=== PATIENT | female | born 1960 | race Asian ===

== ENCOUNTER 2020-06-01 01:05 | Inpatient (IN) | payer OTHER, SELFPAY ==
[~2020-06-01] VITALS: Ht 149.9 cm; Wt 41.7 kg
[2020-06-01 01:05] VITALS: BP_SYST 136
[2020-06-01] MEDS ORDERED: NS 1000 ML IV.SOLN IV ONE (02:15)
[2020-06-01] MEDS ORDERED: cefTRIAXone 1 GM IVPB PREMIX 50 ML IV ONE (02:15)
[2020-06-01] MEDS ORDERED: IPRATROPIUM/ALBUTEROL SULFATE 3 ML AMPUL.NEB (DUONEB) INH ONE (02:30)
[2020-06-01 02:35] LABS: HEMATOCRIT 46.8 % (36-48); HEMOGLOBIN 15.3 g/dL (12.0-16.0); MEAN CORPUSCULAR HEMOGLOBIN 35 pg (27-31); MEAN CORPUSCULAR HGB CONC 33 % (32-36); MEAN CORPUSCULAR VOLUME 107 fL (79.0-98.0); PLATELET COUNT (AUTO) 245 K/uL (130-430); RED BLOOD CELL COUNT(AUTO) 4.38 MIL/uL (4.2-6.2); RED CELL DISTRIBUTION WIDTH 13.7 % (9.0-15.0); WHITE BLOOD COUNT (AUTO) 8.6 K/uL (4.8-10.8)
[2020-06-01 02:52] LABS: PROTHROMBIN TIME 8.9 SECS (9.5-12.5)
[2020-06-01 03:00] LABS: ATYPICAL LYMPHOCYTES % 0 % (0-0); BAND % (MANUAL) 1 % (0-6); BASOPHILS % (MANUAL) 0 % (0-2); EOSINOPHILS % (MANUAL) 0 % (0-7); LYMPHOCYTES % (MANUAL) 29 % (20-46); METAMYELOCYTES % 2 % (0-0); MONOCYTES % (MANUAL) 10 % (0-11); MYELOCYTES % 0 % (0-0)
[2020-06-01 03:53] LABS: ANION GAP 25 (5-15); CHLORIDE 109 mmol/L (98-107); CREATININE 0.62 mg/dL (0.55-1.30); GLUCOSE 343 mg/dL (70-99); SODIUM SERUM 139 mmol/L (136-145); UREA NITROGEN, BLOOD 13 mg/dL (8-21)
[2020-06-01 03:58] LABS: ALANINE AMINOTRANSFERASE 15 U/L (12-78); ALBUMIN 3.4 g/dL (3.4-4.8); ASPARTATE AMINOTRANSFERASE 8 U/L (10-37); TOTAL BILIRUBIN 0.3 mg/dL (0.0-1.0)
[2020-06-01 03:59] LABS: GFR AFRICAN AMERICAN 128 mL/min (>90)
[2020-06-01] MEDS ORDERED: SODIUM BICARBONATE 8.4% JECT 50 MEQ in D5W 1,000 ML IV SCH ×2 (04:30→06:15)
[2020-06-01] MEDS ORDERED: SODIUM BICARBONATE 8.4% JECT 50 MEQ/50 ML SYRINGE ONE (04:53)
[2020-06-01] MEDS ORDERED: INSULIN REGULAR, HUMAN 10 UNITS/0.1 ML INJ IVP ONE (05:00)
[2020-06-01] MEDS ORDERED: INSULIN REGULAR, HUMAN 100 UNITS in NS 99 ML IV ONE ×4 (05:00→06:00)
[2020-06-01 05:29] LABS: THYROID STIMULATING HORMONE 0.38 uIu/mL (0.36-3.74)
[2020-06-01] MEDS ORDERED: VANCOMYCIN HCL 1,000 MG in NS 250 ML IV ONE (05:30)
[2020-06-01] MEDS ORDERED: NACL 0.9% 1,000 ML IV ONE (05:30)
[2020-06-01 05:48] LABS: BILIRUBIN,URINE NEGATIVE (NEGATIVE); BLOOD, URINE 1+ (NEGATIVE); CLARITY/URINE CLEAR (CLEAR); COLOR,URINE YELLOW (YELLOW); GLUCOSE,URINE 3+ (NEGATIVE); KETONES,URINE 3+ (NEGATIVE); LEUKOCYTE ESTERASE ,URINE NEGATIVE (NEGATIVE); NITRITE, URINE NEGATIVE (NEGATIVE); PH,URINE 5.5 (5.0-8.0); PROTEIN URINE 1+ (NEGATIVE); UROBILINOGEN,URINE 0.2 (0.2-1.0)
[2020-06-01 05:50] LABS: BARBITURATE, URINE NEGATIVE (NEG <=200); BENZODIAZEPINE, URINE NEGATIVE (NEG <=150); CANNABINOID, URINE NEGATIVE (NEG <=50); COCAINE, URINE NEGATIVE (NEG <=150); METHAMPHETAMINES SCREEN,URINE NEGATIVE (NEG <=500); OPIATE, URINE NEGATIVE (NEG <=100); PHENCYCLIDINE SCREEN,URINE NEGATIVE (NEG <=25); UR TRICYCLIC ANTIDEPRESSANTS NEGATIVE (NEG <=300); URINE AMPHETAMINE NEGATIVE (NEG <=500); URINE METHADONE NEGATIVE (NEG <=200); URINE OXYCODONE SCREEN NEGATIVE (NEG <=100); URINE PROPOXYPHENE SCREEN NEGATIVE (NEG <=300)
[2020-06-01 05:54] LABS: BACTERIA,URINE FEW /HPF (None Seen); WBC,URINE 0-3 /HPF (0-3)
[2020-06-01] MEDS ORDERED: POTASSIUM CHLORIDE 10 MEQ in NACL 0.9% 1,000 ML IV SCH (06:00)
[2020-06-01] MEDS ORDERED: POTASSIUM CHLORIDE 40 MEQ in NS 250 ML IV ONE (06:00)
[2020-06-01] MEDS ORDERED: VANCOMYCIN HCL 1000 MG/VIAL IV ONE (07:15)
[2020-06-01] MEDS ORDERED: ACETAMINOPHEN 325 MG TABLET PO PRN (08:30)
[2020-06-01 08:48] LABS: ALANINE AMINOTRANSFERASE 18 U/L (12-78); ALBUMIN 3.4 g/dL (3.4-4.8); ANION GAP 27 (5-15); ASPARTATE AMINOTRANSFERASE 13 U/L (10-37); CALCIUM 7.4 mg/dL (8.4-11.0); CHLORIDE 102 mmol/L (98-107); CREATININE 0.66 mg/dL (0.55-1.30); SODIUM SERUM 134 mmol/L (136-145); THYROID STIMULATING HORMONE 0.26 uIu/mL (0.34-4.82); TOTAL BILIRUBIN 0.3 mg/dL (0.0-1.0); UREA NITROGEN, BLOOD 12 mg/dL (8-21)
[2020-06-01 08:54] LABS: POTASSIUM 2.9 mmol/L (3.5-5.1)
[2020-06-01 08:55] LABS: GFR AFRICAN AMERICAN 119 mL/min (>90)
[2020-06-01 08:56] LABS: GLUCOSE 429 mg/dL (70-99)
[2020-06-01] MEDS ORDERED: POTASSIUM CHLORIDE 20 MEQ TAB.PRT.SR PO ONE ×2 (09:00→14:00)
[2020-06-01] MEDS ORDERED: FAMOTIDINE 20 MG TABLET PO ONE (09:00)
[2020-06-01] MEDS ORDERED: ONDANSETRON HCL 4 MG/2 ML VIAL IVP PRN (11:15)
[2020-06-01] MEDS ORDERED: FAMOTIDINE 20 MG TABLET ONE (11:19)
[2020-06-01] MEDS: cefTRIAXone 1 GM in D5W 50 ML IV SCH (12:27)
[2020-06-01] MEDS: POTASSIUM CHLORIDE 40 MEQ in NACL 0.9% 1,000 ML IV SCH ×3 (12:28→23:49)
[2020-06-01] MEDS ORDERED: cefTRIAXone 1 GM VIAL ONE (12:37)
[2020-06-01 13:15] LABS: ANION GAP 23 (5-15); CALCIUM 8.1 mg/dL (8.4-11.0); CHLORIDE 109 mmol/L (98-107); CREATININE 0.56 mg/dL (0.55-1.30); FREE T4 (FREE THYROXINE) 0.6 ng/dL (0.6-1.6); GLUCOSE 202 mg/dL (70-99); PHOSPHORUS 2.2 mg/dL (2.7-4.5); POTASSIUM 3.5 mmol/L (3.5-5.1); SODIUM SERUM 137 mmol/L (136-145); UREA NITROGEN, BLOOD 11 mg/dL (8-21)
[2020-06-01 13:22] LABS: GFR AFRICAN AMERICAN 144 mL/min (>90)
[2020-06-01] MEDS ORDERED: 0.45% NACL 1,000 ML IV SCH (14:00)
[2020-06-01] MEDS ORDERED: INSULIN REGULAR, HUMAN 100 UNITS in NS 99 ML IV PRN ×2 (14:00)
[2020-06-01] MEDS ORDERED: POTASSIUM CHLORIDE 20 MEQ TAB.PRT.SR ONE (14:04)
[2020-06-01] MEDS ORDERED: IOHEXOL 350 mgI/mL, 150 ML INFUS..BTL IV ONE (14:34)
[2020-06-01 17:02] LABS: SODIUM SERUM 136 mmol/L (136-145)
[2020-06-01 17:03] LABS: CHLORIDE 111 mmol/L (98-107); POTASSIUM 4.6 mmol/L (3.5-5.1)
[2020-06-01 17:06] LABS: ANION GAP 19 (5-15)
[2020-06-01 17:07] LABS: CALCIUM 8.4 mg/dL (8.4-11.0); GFR AFRICAN AMERICAN 164 mL/min (>90); GLUCOSE 153 mg/dL (70-99); UREA NITROGEN, BLOOD 10 mg/dL (8-21)
[2020-06-01] MEDS ORDERED: D5/0.45 NS 1,000 ML IV SCH (17:15)
[2020-06-01 20:42] LABS: CALCIUM 8.7 mg/dL (8.4-11.0); CREATININE 0.57 mg/dL (0.55-1.30)
[2020-06-01] MEDS ORDERED: INSULIN REGULAR, HUMAN 100 UNITS/ML, 10 ML VIAL (humuLIN R) SUBCUT PRN (21:30)
[2020-06-02 01:16] LABS: CALCIUM 8.5 mg/dL (8.4-11.0); CREATININE 0.55 mg/dL (0.55-1.30); POTASSIUM 3.3 mmol/L (3.5-5.1)
[2020-06-02] MEDS ORDERED: POTASSIUM CHLORIDE 20 MEQ TAB.PRT.SR PO ONE ×2 (02:15→10:50)
[2020-06-02] MEDS ORDERED: KCL 20 mEq in D5/0.45NS 1000mL 1,000 ML IV SCH ×2 (02:15→14:00)
[2020-06-02] MEDS ORDERED: KCL 20 mEq in D5/0.45NS 1000mL 1,000 ML IV ONE (02:22)
[2020-06-02] MEDS ORDERED: POTASSIUM CHLORIDE 20 MEQ TAB.PRT.SR ONE ×2 (02:23→11:15)
[2020-06-02] MEDS ORDERED: NAPH,MB-DB/K PH,MBDB 250 MG TAB PO ONE (02:30)
[2020-06-02 03:48] LABS: BASOPHILS % (AUTO) 0.4 % (0.0-2.0); HEMATOCRIT 36.1 % (36-48); HEMOGLOBIN 12.3 g/dL (12.0-16.0); LYMPHOCYTES # (AUTO) 0.7 K/uL (1.0-5.5); LYMPHOCYTES % (AUTO) 13.5 % (20.5-51.5); MEAN CORPUSCULAR HEMOGLOBIN 35 pg (27-31); MEAN CORPUSCULAR HGB CONC 34 % (32-36); MEAN CORPUSCULAR VOLUME 104 fL (79.0-98.0); MONOCYTES # (AUTO) 0.6 K/uL (0.0-1.0); MONOCYTES % (AUTO) 11.2 % (1.7-9.3); NEUTROPHILS % (AUTO) 74.9 % (40.0-70.0); PLATELET COUNT (AUTO) 145 K/uL (130-430); RED BLOOD CELL COUNT(AUTO) 3.47 MIL/uL (4.2-6.2); RED CELL DISTRIBUTION WIDTH 13.5 % (9.0-15.0); WHITE BLOOD COUNT (AUTO) 5.3 K/uL (4.8-10.8)
[2020-06-02 03:57] LABS: ALBUMIN 2.7 g/dL (3.4-4.8); CALCIUM 8.4 mg/dL (8.4-11.0); CREATININE 0.5 mg/dL (0.55-1.30); TOTAL BILIRUBIN 0.2 mg/dL (0.0-1.0)
[2020-06-02] MEDS: POTASSIUM CHLORIDE 40 MEQ in NACL 0.9% 1,000 ML IV SCH ×2 (06:32→12:10)
[2020-06-02] MEDS ORDERED: POTASSIUM CHLORIDE 20 MEQ/PKT PACKET PO ONE (08:00)
[2020-06-02 08:13] LABS: CALCIUM 8.1 mg/dL (8.4-11.0); CREATININE 0.36 mg/dL (0.55-1.30); POTASSIUM 3.5 mmol/L (3.5-5.1)
[2020-06-02] MEDS ORDERED: POTASSIUM CHLORIDE 20 MEQ/PKT PACKET ONE (08:22)
[2020-06-02] MEDS: FAMOTIDINE 20 MG TABLET PO SCH (10:57)
[2020-06-02] MEDS: NAPH,MB-DB/K PH,MBDB 250 MG TAB PO SCH ×4 (10:58→21:13)
[2020-06-02] MEDS: cefTRIAXone 1 GM in D5W 50 ML IV SCH (12:05)
[2020-06-02 13:11] LABS: CREATININE 0.52 mg/dL (0.55-1.30); PHOSPHORUS 1.7 mg/dL (2.7-4.5); POTASSIUM 3.6 mmol/L (3.5-5.1)
[2020-06-02] MEDS ORDERED: NOREPINEPHRINE BITARTRATE 4 MG in NS 246 ML IV PRN (16:15)
[2020-06-02 17:42] LABS: CALCIUM 8.2 mg/dL (8.4-11.0); CREATININE 0.45 mg/dL (0.55-1.30); PHOSPHORUS 2.4 mg/dL (2.7-4.5); POTASSIUM 3.6 mmol/L (3.5-5.1)
[2020-06-02] MEDS ORDERED: INSULIN REGULAR, HUMAN 100 UNITS in NS 99 ML IV PRN ×2 (19:00)
[2020-06-02] MEDS: KCL 20 mEq in 0.45% NS 1000 mL 1,000 ML IV SCH (19:29)
[2020-06-02] MEDS: KCL 40mEq in D5/0.45NS 1000 mL 1,000 ML IV SCH (19:33)
[2020-06-02 20:28] LABS: CALCIUM 8.3 mg/dL (8.4-11.0); CREATININE 0.54 mg/dL (0.55-1.30); POTASSIUM 3.6 mmol/L (3.5-5.1)
[2020-06-02 20:32] LABS: PHOSPHORUS 2.6 mg/dL (2.7-4.5)
[2020-06-03 01:57] LABS: CALCIUM 7.8 mg/dL (8.4-11.0); CREATININE 0.4 mg/dL (0.55-1.30); POTASSIUM 3.2 mmol/L (3.5-5.1)
[2020-06-03] MEDS ORDERED: POTASSIUM CHLORIDE 20 MEQ TAB.PRT.SR PO ONE (02:30)
[2020-06-03] MEDS: KCL 40mEq in D5/0.45NS 1000 mL 1,000 ML IV SCH ×2 (03:57→11:44)
[2020-06-03 07:05] LABS: POTASSIUM 3.8 mmol/L (3.5-5.1)
[2020-06-03 07:06] LABS: CALCIUM 7.9 mg/dL (8.4-11.0); CREATININE 0.43 mg/dL (0.55-1.30); PHOSPHORUS 2.4 mg/dL (2.7-4.5)
[2020-06-03] MEDS: FAMOTIDINE 20 MG TABLET PO SCH (08:57)
[2020-06-03] MEDS: cefTRIAXone 1 GM in D5W 50 ML IV SCH (11:44)
[2020-06-03] MEDS ORDERED: INSULIN GLARGINE 100 UNITS/ML 10 ML VIAL SUBCUT ONE (12:00)
[2020-06-03] MEDS ORDERED: DEXTROSE 50% JECT 50 ML DISP.SYRIN IVP PRN (12:00)
[2020-06-03 12:38] LABS: CALCIUM 8.4 mg/dL (8.4-11.0); CREATININE 0.33 mg/dL (0.55-1.30); PHOSPHORUS 2.6 mg/dL (2.7-4.5); POTASSIUM 3.6 mmol/L (3.5-5.1)
[2020-06-03] MEDS ORDERED: INSULIN GLARGINE 100 UNITS/ML 10 ML VIAL ONE (12:40)
[2020-06-03] MEDS: INSULIN LISPRO SLIDING SCALE 100 UNITS/ML VIAL (humaLOG) SUBCUT PRN ×3 (12:46→21:29)
[2020-06-03] MEDS: KCL 20 mEq in 0.45% NS 1000 mL 1,000 ML IV SCH ×2 (12:58→21:18)
[2020-06-03 14:57] LABS: MEAN CORPUSCULAR HEMOGLOBIN 34 pg (27-31); MONOCYTES # (AUTO) 0.5 K/uL (0.0-1.0); NEUTROPHILS # (AUTO) 4.3 K/uL (1.8-7.7)
[2020-06-03 15:01] LABS: BASOPHILS % (AUTO) 0.7 % (0.0-2.0); HEMATOCRIT 35.9 % (36-48); LYMPHOCYTES # (AUTO) 1.5 K/uL (1.0-5.5); LYMPHOCYTES % (AUTO) 24.1 % (20.5-51.5); MEAN CORPUSCULAR HGB CONC 33 % (32-36); MEAN CORPUSCULAR VOLUME 103 fL (79.0-98.0); MONOCYTES % (AUTO) 7.5 % (1.7-9.3); NEUTROPHILS % (AUTO) 67.7 % (40.0-70.0); PLATELET COUNT (AUTO) 154 K/uL (130-430); RED BLOOD CELL COUNT(AUTO) 3.49 MIL/uL (4.2-6.2); RED CELL DISTRIBUTION WIDTH 13.4 % (9.0-15.0); WHITE BLOOD COUNT (AUTO) 6.4 K/uL (4.8-10.8)
[2020-06-03 16:55] LABS: CALCIUM 7.8 mg/dL (8.4-11.0); CREATININE 0.27 mg/dL (0.55-1.30); PHOSPHORUS 2.6 mg/dL (2.7-4.5); POTASSIUM 3.5 mmol/L (3.5-5.1)
[2020-06-03] MEDS: INSULIN Lispro 100 UNITS/ML VIAL (humaLOG) SUBCUT SCH (17:42)
[2020-06-03] MEDS ORDERED: INSULIN Lispro 100 UNITS/ML VIAL (humaLOG) ONE ×2 (17:55→21:46)
[2020-06-04] MEDS: KCL 20 mEq in 0.45% NS 1000 mL 1,000 ML IV SCH ×3 (05:27→21:43)
[2020-06-04 07:10] LABS: CALCIUM 8.5 mg/dL (8.4-11.0); CREATININE 0.4 mg/dL (0.55-1.30); PHOSPHORUS 3.3 mg/dL (2.7-4.5); POTASSIUM 3.8 mmol/L (3.5-5.1)
[2020-06-04] MEDS: INSULIN Lispro 100 UNITS/ML VIAL (humaLOG) SUBCUT SCH ×3 (08:36→17:45)
[2020-06-04] MEDS ORDERED: INSULIN REGULAR, HUMAN 10 UNITS/0.1 ML INJ ONE (08:52)
[2020-06-04] MEDS ORDERED: INSULIN GLARGINE 100 UNITS/ML 10 ML VIAL SUBCUT SCH (09:00)
[2020-06-04] MEDS ORDERED: INSULIN GLARGINE 100 UNITS/ML 10 ML VIAL ONE ×2 (10:50→13:06)
[2020-06-04] MEDS ORDERED: NACL 0.9% 1,000 ML IV SCH (11:45)
[2020-06-04] MEDS ORDERED: INSULIN GLARGINE 100 UNITS/ML 10 ML VIAL SUBCUT ONE (12:30)
[2020-06-04 13:39] VITALS: BP_SYST 98
[2020-06-04] MEDS: cefTRIAXone 1 GM in D5W 50 ML IV SCH (16:04)
[2020-06-04 16:43] VITALS: BP_SYST 84
[2020-06-04] MEDS: INSULIN LISPRO SLIDING SCALE 100 UNITS/ML VIAL (humaLOG) SUBCUT PRN ×2 (17:46→21:09)
[2020-06-04 18:00] VITALS: BP_SYST 110
[2020-06-04 20:00] VITALS: BP_SYST 111
[2020-06-04] MEDS ORDERED: ZOLPIDEM TARTRATE 5 MG TABLET PO PRN (21:00)
[2020-06-04 21:02] LABS: CALCIUM 8.8 mg/dL (8.4-11.0); CREATININE 0.54 mg/dL (0.55-1.30); POTASSIUM 3.5 mmol/L (3.5-5.1)
[2020-06-05] VITALS: BP_SYST 98
[2020-06-05] MEDS: KCL 20 mEq in 0.45% NS 1000 mL 1,000 ML IV SCH (03:54)
[2020-06-05 05:00] VITALS: BP_SYST 91
[2020-06-05] MEDS: INSULIN Lispro 100 UNITS/ML VIAL (humaLOG) SUBCUT SCH ×2 (06:18→12:46)
[2020-06-05] MEDS: INSULIN LISPRO SLIDING SCALE 100 UNITS/ML VIAL (humaLOG) SUBCUT PRN ×2 (06:19→12:47)
[2020-06-05 07:29] LABS: ALBUMIN 2.6 g/dL (3.4-4.8); CALCIUM 8.7 mg/dL (8.4-11.0); CREATININE 0.35 mg/dL (0.55-1.30); PHOSPHORUS 4.4 mg/dL (2.7-4.5); POTASSIUM 3.6 mmol/L (3.5-5.1); TOTAL BILIRUBIN 0.3 mg/dL (0.0-1.0)
[2020-06-05 08:00] VITALS: BP_SYST 91
[2020-06-05] MEDS ORDERED: INSULIN GLARGINE 100 UNITS/ML 10 ML VIAL SUBCUT SCH (09:00)
[2020-06-05] MEDS: FAMOTIDINE 20 MG TABLET PO SCH (09:08)
[2020-06-05 12:00] VITALS: BP_SYST 101
[2020-06-05] MEDS: cefTRIAXone 1 GM in D5W 50 ML IV SCH (12:53)
[2020-06-05 13:27] VITALS: BP_SYST 101
[2020-06-05] MEDS ORDERED: INSU100V9 SQ (13:53)
[2020-06-05] MEDS ORDERED: INSU100V SQ (13:53)
== END 2020-06-05 14:20 | disposition home or self-care (01) | DRG 639 ==
LOC: SED 01:05 → SIC 05:49 → STU 05:57 → SIC 07:33 → STU 12:32 → SIC 14:00 → STU 06-04 12:21
PROVIDERS: ADMIT Internal Medicine; ATTEND Internal Medicine
DX: E10.10 Type 1 diabetes mellitus with ketoacidosis without coma (principal); E87.6 Hypokalemia; R19.7 Diarrhea, unspecified; I95.9 Hypotension, unspecified; K59.00 Constipation, unspecified; Z20.828 Contact with and (suspected) exposure to other viral communicable diseases; E83.39 Other disorders of phosphorus metabolism; Z79.4 Long term (current) use of insulin; Z83.3 Family history of diabetes mellitus
CPT/HCPCS: 36415; 36600; 71045; 71275; 80048; 80053; 80307; 81000-TC; 82009-TC; 82550-TC; 82803-TC; 82962; 83036; 83605; 83735-TC; 83874; 83880; 84100-TC; 84439; 84443-TC; 84484; 85007; 85025; 85027; 85379; 85610-TC; 86140; 87040-TC; 87081; 87086; 94640; 96365; 96375; 99285; G0378; J0696; J1815; J3370; J3480; J7030; J7050; J7060; Q9967; U0003-CS